=== PATIENT | male | born 1945 | race Caucasian/White ===

== ENCOUNTER 2023-11-15 23:39 | Emergency (ER) | payer MEDICARE, OTHER ==
[~2023-11-15] VITALS: Ht 172.7 cm; Wt 72.7 kg
[~2023-11-15 23:39] MED LIST: ASPIRIN E.C. 8181 MG PO; CIPRO 500MG TA500 MG PO; CLARITIN 1010 MG/TAB PO; FLAGYL500 MG PO; FLONASE NASAL S16 GM; JUICE PLUS WIT240 ML PO; LEVITRA10 MG PO; LIPITOR20 MG PO; MULTIPLE VITAMI1 CAP PO; OMEGA-31000 MG PO; VITAMIN C PUR1000 MG PO; VITAMIN D1000 IU PO; VITAMIN E 400 U4001 PO
[2023-11-15] MEDS ORDERED: Hydrocortisone 2.5% Cream 28.35 GM TUBE TOP ONE (23:45)
[2023-11-15] MEDS ORDERED: diphenhydrAMINE 25 MG CAP PO ONE (23:45)
[2023-11-16 00:25] VITALS: BP 136/64; PULSE 57; TEMP 98.1
== END 2023-11-16 00:25 | disposition home or self-care (01) ==
LOC: COL.ER 23:39
DX: B88.0 Other acariasis (principal)